=== PATIENT | female | born 1985 | race Caucasian/White ===

== ENCOUNTER 2020-01-17 12:53 | Emergency (ER) | payer OTHER, SELFPAY ==
--- NOTE | ~2020-01-17 | XR_ITS ---
XR lumbar spine 2-3V DATE: 01/17/2020 13:52 INDICATION: Patient fell on posterior left hip. Lower left back pain TECHNIQUE: AP, lateral, coned lateral lumbosacral views COMPARISON: None FINDINGS: There is normal alignment of the lumbar spine. No fracture or bone destruction. No spondylo listhesis. The lumbar and included lower thoracic pedicles are intact. Lumbar and lumbosacral intersp aces are well preserved. The sacroiliac joints are intact. IMPRESSION: No significant abnormality Reviewed, dictated and finalized at location A. IMPRESSION: No significant abnormality
[2020-01-17 13:02] VITALS: BP 160/85; PULSE 108; RESP 20; TEMP 37.1; O2SAT 100
--- NOTE | 2020-01-17 13:33 | ED.GENADULT ---
HPI - General Adult General Chief complaint: Back Pain/Injury Stated complaint: left lower back hip pain Time Seen by Provider: 01/17/20 13:33 Source: patient and RN notes reviewed Mode of arrival: ambulatory Limitations: no limitations History of Present Illness HPI narrative: 34-year-old female presents with complaints of left lower back pain that radiates into left posterior leg for 1 day. Tylenol and Aleve this morning at 07:00 with little to no relief. Maile says she fell last night at a local [employer]. Denies numbness or tingling. No upper or lower extremity pain or weakness. Exacerbating factors consist of prolong standing and bending. Denies problems with urinating or having a bowel movement, LBM this am per patient and normal. No flank pain or hematuria or dysuria. The patient reports she have not been diagnosed with COVID-19. The patient reports she is not waiting for the results of a COVID-19 lab test. The patient reports she do not have fever, chills, weakness, or fatigue. The patient reports she do not have a new or worsening cough or shortness of breath. Denies chest pain. The patient reports she do not have any rhinorrhea, congestion, sore throat, nausea, vomiting, abdominal pain, and diarrhea. Tolerating po intake well. Denies recent traveling. Denies concerns for COVID-19 or exposures been home since [id number] order except for essential household needs, working, and return home. At this time, patient is not suspected of having COVID-19. Some parts of this dictation were generated by voice recognition software and may contain typographical and/or grammatical inaccuracies. Related Data Home Medications Medication Instructions Recorded Confirmed escitalopram oxalate 20 mg tablet 20 mg PO DAILY 08/27/19 01/17/20 atomoxetine 80 mg capsule 80 mg PO DAILY 08/28/19 01/17/20 lamotrigine 100 mg tablet 100 mg PO DAILY 08/28/19 01/17/20 Allergies Allergy/AdvReac Type Severity Reaction Status Date / Time No Known Allergies Allergy Verified 01/17/20 13:13 Review of Systems Review of Systems: Narrative: CONSTITUTIONAL: Denies fever, chills, sweats. EYES: Denies visual changes, redness, discharge. ENT: Denies rhinorrhea, congestion, sore throat, otalgia. CARDIOVASCULAR: Denies chest pain, palpitations, edema. RESPIRATORY: Denies dyspnea, wheezing, cough. GASTROINTESTINAL: Denies abdominal pain, nausea, vomiting, diarrhea. GENITOURINARY: Denies dysuria, hematuria, abnormal discharge. SKIN: Denies rash or itching. MUSCULOSKELETAL: Complains of left lower back pain that radiates into left posterior leg. Denies joint pain or myalgia. NEUROLOGIC: Denies numbness or focal weakness. PSYCHIATRIC: Denies anxiety or depression. All systems reviewed & are unremarkable except as noted in HPI and below. [facility] Past Medical History Medical History (Updated 01/18/20 @ 00:00 by Huma Cooper) Anxiety delivery delivered X2 Surgical History Surgical History H/O section Family History Family History Father Family history of thyroid disease Hypertension Mother Family history of malignant neoplasm of breast in first degree relative Grandparent Diabetes mellitus Social History Social History (Updated 01/17/20 @ 13:42 by JOSE ANGEL Plasencia) Smoking packs per day: 1 Smoking cigarettes per day: 20.0 Years smoked: 20 Smoking pack-years: 20.00 Smoking status: Current some day smoker Second hand tobacco smoke exposure: Yes Alcohol intake: current Drinks per week: 1 Substance use: never Living arrangements: with family Occupation/Education: occupation Gender identity (if verbalized by the patient): Female Comments At time of signature, agree with nurse past medical, surgical, social, and family history. There is no relevant family histo
== END 2020-01-17 14:23 | disposition home or self-care (01) ==
PROVIDERS: Emergency Provider Nurse Practitioner Family; PCP Family Medicine
DX: S39.012A Strain of muscle, fascia and tendon of lower back, initial encounter (principal); M54.32 Sciatica, left side; F17.210 Nicotine dependence, cigarettes, uncomplicated; X58.XXXA Exposure to other specified factors, initial encounter
CPT/HCPCS: 72100; 99213; G0463

== ENCOUNTER 2020-11-16 08:21 | Outpatient (CLI) | payer OTHER, SELFPAY ==
--- NOTE | ~2020-11-16 | XR_ITS ---
EXAMINATION: XR knee RT 2V DATE: 11/16/2020 08:54 INDICATION: Right knee pain. TECHNIQUE: 2 views of right knee were obtained. COMPARISON: None. FINDINGS: Bone alignment is normal. No fracture. Joint spaces are well maintained. There is no knee j oint effusion. IMPRESSION: 1. Normal right knee. Reviewed, dictated and finalized at location A. IMPRESSION: 1. Normal right knee.
--- NOTE | ~2020-11-16 | XR_ITS ---
EXAMINATION: XR knee LT 2V DATE: 11/16/2020 08:54 INDICATION: Left knee pain. TECHNIQUE: 2 views of left knee were obtained. COMPARISON: None. FINDINGS: Bone alignment is normal. No fracture. Joint spaces are well maintained. There is no knee j oint effusion. IMPRESSION: 1. Normal left knee. Reviewed, dictated and finalized at location A. IMPRESSION: 1. Normal left knee.
[2020-11-16 19:48] LABS: Basophils Absolute Auto 0.1 K/mm3 (0.0-0.1); Basophils Percent Auto 0.9 % (0.2-1.2); Eosinophils Absolute Auto 0.3 K/mm3 (0-0.3); Eosinophils Percent Auto 4.7 % (0-4.4); Hemoglobin 14.1 g/dL (12.0-15.0); Immature Granulocyte Absolute 0.01 K/mm3 (0.00-0.031); Immature Granulocyte Percent A 0.2 % (0-0.5); Lymphocytes Absolute Auto 1.69 K/mm3 (0.9-3.2); Lymphocytes Percent Auto 30.6 % (18.3-44.2); Mean Corpuscular HGB Conc 33.6 g/dl (32-36); Mean Corpuscular Hemoglobin 32.5 pg (26-34); Mean Corpuscular Volume 96.8 fl (80-100); Monocytes Absolute Auto 0.5 K/mm3 (0.1-0.6); Monocytes Percent Auto 8.1 % (2.6-8.5); Neutrophils Absolute Auto 3.1 K/mm3 (1.3-6.7); Neutrophils Percent Auto 55.5 % (45.5-73.1); Platelet Count Result 361 k/mm3 (150-375); Red Blood Count 4.34 M/mm3 (4.2-5.4); Red Cell Distribution Width 12.5 % (11.5-14.5); White Blood Count 5.5 K/mm3 (4.5-10.0)
[2020-11-16 19:51] LABS: Add Urine Microscopic? YES; Appearance Urine Cloudy (Clear); Bilirubin Urine Negative (Negative); Blood Urine Negative (Negative); Color Urine Yellow (Yellow); Glucose Urine UA Negative (Negative); Ketones Urine Negative (Negative); Leukocyte Esterase Ur Negative LEU/UL (Negative); Nitrate Urine Negative (Negative); Protein Urine Negative (Negative); RBC Urine 0-2 /hpf (0-2); Specific Grav Ur 1.018 (1.001-1.035); Squamous Epithelial Cell Urine Many /hpf (Few); Urobilinogen Urine Negative mg/dL (<2.0); WBC Urine 0-3 /hpf
[2020-11-16 19:58] LABS: Alanine Aminotransferase 21 U/L (4-35); Albumin Level 4.5 g/dL (3.5-5.1); Alkaline Phosphatase 114 U/L (38-126); Anion Gap 5 mmol/L (8-16); Aspartate Amino Transferase 20 U/L (14-36); Bilirubin,Total 0.2 mg/dL (0.2-1.3); Blood Urea Nitrogen 16 mg/dL (7-17); CRP < 0.5 mg/dL (<1.0); Calcium 9.5 mg/dL (8.4-10.2); Carbon Dioxide 29 mmol/L (22-30); Chloride 104 mmol/L (98-107); Cholesterol 167 mg/dL (0-200); Estimated Glomerular Filt Rate > 60; Glucose 99 mg/dL (65-105); HDL Direct 69 mg/dL; Potassium 4.5 mmol/L (3.4-5.0); Rheumatoid Factor < 8.6 IU/ML (<12); Sodium 138 mmol/L (137-145); Triglycerides 94 mg/dL (<150)
[2020-11-16 20:07] LABS: LDL Cholesterol Direct 82 mg/dL
[2020-11-16 20:13] LABS: Free T4 Free Thyroxine 0.65 ng/mL (0.78-2.19); Vitamin D 25 Hydroxy 36.4 ng/mL
[2020-11-16 20:26] LABS: Thyroid Stimulating Hormone 0.816 uIU/mL (0.465-4.680)
[2020-11-16 21:09] LABS: Folic Acid 11.2 ng/mL (2.76->20)
[2020-11-20 05:20] LABS: CA-125 22 U/mL (<35); Sex Hormone Binding Globulin 78 nmol/L (17-124)
[2020-11-21 09:22] LABS: Progesterone 8.7 ng/mL (***); Triiodothyronine T3 Free 2.7 pg/mL (2.3-4.2)
[2020-11-21 10:14] LABS: Testosterone Total 38 ng/dL (2-45)
[2020-11-23 11:37] LABS: T3 Reverse 10 ng/dL (8-25)
[2020-11-24 16:27] LABS: Estradiol, Ultrasensitive 174 pg/mL
== END 2020-11-16 08:22 | disposition home or self-care (01) ==
PROVIDERS: PCP Family Medicine; Visit Provider Family Medicine
DX: F98.8 Other specified behavioral and emotional disorders with onset usually occurring in childhood and adolescence (principal); M54.5 Low back pain; M62.838 Other muscle spasm; N94.3 Premenstrual tension syndrome; Z79.899 Other long term (current) drug therapy; G25.81 Restless legs syndrome; M25.561 Pain in right knee; M25.562 Pain in left knee; F32.81 Premenstrual dysphoric disorder; N99.89 Other postprocedural complications and disorders of genitourinary system; Z98.51 Tubal ligation status
CPT/HCPCS: 36415; 73560; 80053; 80061; 81001; 82306; 82607; 82670; 82746; 83001; 83735; 84144; 84270; 84402; 84403; 84439; 84443; 84481; 84482; 85025; 86038; 86140; 86304; 86430

== ENCOUNTER 2021-01-26 12:14 | Outpatient (CLI) | payer OTHER, SELFPAY ==
[2021-01-26 18:44] LABS: Free T4 Free Thyroxine 0.89 ng/mL (0.78-2.19)
== END 2021-01-26 12:15 | disposition home or self-care (01) ==
LOC: ANHBWCLAB 12:16
PROVIDERS: PCP Family Medicine; Visit Provider Family Medicine
DX: E03.9 Hypothyroidism, unspecified (principal)
CPT/HCPCS: 36415; 84439; 84443

== ENCOUNTER 2021-03-23 13:52 | Outpatient (CLI) | payer OTHER, SELFPAY | END 2021-03-23 13:53 | disposition home or self-care (01) | LOC: ANHBWCLAB 13:55 | PROVIDERS: PCP Family Medicine; Visit Provider Family Medicine | DX: E03.9 Hypothyroidism, unspecified (principal) | CPT/HCPCS: 36415; 84443 ==

== ENCOUNTER 2021-06-07 11:17 | Outpatient (CLI) | payer OTHER, SELFPAY | END 2021-06-07 11:18 | disposition home or self-care (01) | PROVIDERS: PCP Family Medicine; Visit Provider Family Medicine | DX: E03.9 Hypothyroidism, unspecified (principal) | CPT/HCPCS: 36415; 84443 ==

== ENCOUNTER 2022-11-30 13:43 | Outpatient (CLI) | payer OTHER, SELFPAY ==
[2022-11-30 19:24] LABS: Basophils Absolute Auto 0.1 K/mm3 (0.0-0.1); Basophils Percent Auto 0.9 % (0.2-1.2); Eosinophils Absolute Auto 0.3 K/mm3 (0-0.3); Eosinophils Percent Auto 4.6 % (0-4.4); Hematocrit 43.3 % (37.0-47.0); Hemoglobin 14.4 g/dL (12.0-15.0); Immature Granulocyte Absolute 0.01 K/mm3 (0.00-0.031); Immature Granulocyte Percent A 0.1 % (0-0.5); Lymphocytes Absolute Auto 2.35 K/mm3 (0.9-3.2); Lymphocytes Percent Auto 33.6 % (18.3-44.2); Mean Corpuscular HGB Conc 33.3 g/dl (32-36); Mean Corpuscular Hemoglobin 31.8 pg (26-34); Mean Corpuscular Volume 95.6 fl (80-100); Mean Platelet Volume 9.6 fl (7.4-10.4); Monocytes Absolute Auto 0.5 K/mm3 (0.1-0.6); Monocytes Percent Auto 6.7 % (2.6-8.5); Neutrophils Absolute Auto 3.8 K/mm3 (1.3-6.7); Neutrophils Percent Auto 54.1 % (45.5-73.1); Platelet Count Result 371 k/mm3 (150-375); Red Blood Count 4.53 M/mm3 (4.2-5.4); Red Cell Distribution Width 12.8 % (11.5-14.5)
[2022-11-30 19:33] LABS: Alanine Aminotransferase 37 U/L (6-35); Albumin Level 4.9 g/dL (3.5-5.1); Alkaline Phosphatase 117 U/L (38-126); Anion Gap 7 mmol/L (8-16); Aspartate Amino Transferase 78 U/L (14-36); Bilirubin,Total 0.6 mg/dL (0.2-1.3); Blood Urea Nitrogen 9 mg/dL (7-17); Calcium 9.1 mg/dL (8.4-10.2); Carbon Dioxide 31 mmol/L (22-30); Chloride 102 mmol/L (98-107); Cholesterol 203 mg/dL (0-200); Estimated Glomerular Filt Rate > 60; Glucose 92 mg/dL (65-110); HDL Direct 63 mg/dL; Potassium 3.8 mmol/L (3.4-5.0); Sodium 140 mmol/L (137-145); Triglycerides 169 mg/dL (<150)
[2022-11-30 19:44] LABS: LDL Cholesterol Direct 94 mg/dL
== END 2022-11-30 13:44 | disposition home or self-care (01) ==
LOC: ANHBWCLAB 13:45
PROVIDERS: PCP Family Medicine; Visit Provider Nurse Practitioner Family
DX: Z00.00 Encounter for general adult medical examination without abnormal findings (principal)
CPT/HCPCS: 36415; 80053; 80061; 84443; 85025

== ENCOUNTER 2023-04-24 13:50 | Outpatient (CLI) | payer OTHER, SELFPAY ==
--- NOTE | ~2023-04-24 | XR_ITS ---
EXAM: XR lumbar spine 2-3V, XR sacrum coccyx min 2V DATE: 04/24/2023 14:07 HISTORY: MID LOW BACK/ PELVIC PAIN X 2 MONTHS . COMPARISON: 01/17/2020. FINDINGS: 5 nonrib-bearing lumbar-type vertebral bodies. Pedicles intact. Normal vertebral body alig nment. Vertebral body heights preserved. Mild disc space narrowing and marginal osteophytosis at L3-4 and L4-5. Normal facets and posterior elements. No fracture or dislocation. Mild degenerative change at the pubic symphysis. Normal SI joints and bilateral hips IMPRESSION: Mild degenerative disc disease at L3-4 and L4-5. Mild osteitis pubis. Reviewed, dictated and finalized at location K. IMPRESSION: Mild degenerative disc disease at L3-4 and L4-5. Mild osteitis pubis.
== END 2023-04-24 13:51 | disposition home or self-care (01) ==
PROVIDERS: PCP Family Medicine; Visit Provider Nurse Practitioner Adult Health
DX: M54.50 Low back pain, unspecified (principal); M51.36 Other intervertebral disc degeneration, lumbar region; M86.8X8 Other osteomyelitis, other site
CPT/HCPCS: 72100; 72220

== ENCOUNTER 2024-06-19 14:51 | Emergency (ER) | payer OTHER, SELFPAY ==
[2024-06-19 14:56] VITALS: BP 130/90; PULSE 102; RESP 20; TEMP 37.1; O2SAT 98
--- NOTE | 2024-06-19 15:20 | ED.URI ---
HPI - URI/Sore Throat General Chief Complaint: Upper Respiratory Infection Stated Complaint: Sore Throat History of Present Illness HPI Narrative: 38-year-old female presented for complaint of sore throat bilateral ear pain for 3 days. Denies associated nasal congestion, cough, nausea vomiting diarrhea, fevers or chills. Taking ibuprofen and Tylenol. smokes 1 ppd. Related Data Allergies Allergy/AdvReac Type Severity Reaction Status Date / Time No Known Allergies Allergy Verified 06/11/24 10:36 Review of Systems Review of Systems: CONSTITUTIONAL: Denies body aches, fever, chills, or sweats. EYES: Denies visual changes, redness, or discharge. ENT: Denies rhinorrhea, congestion, reports sore throat, otalgia. CARDIOVASCULAR: Denies chest pain, palpitations, or edema. RESPIRATORY: Denies dyspnea. GASTROINTESTINAL: Denies abdominal pain, nausea, vomiting, or diarrhea. SKIN: Denies rash MUSCULOSKELETAL: Denies back pain, joint pain, or myalgia. NEUROLOGIC: Denies headache PMFSH Past Medical History Medical History Anxiety delivery delivered X2 Surgical History Surgical History H/O section Family History Family History Father Family history of thyroid disease Hypertension Graves disease Mother Family history of malignant neoplasm of breast in first degree relative History of cholecystectomy Grandparent Diabetes mellitus Sibling Graves disease Social History Social History Smoking packs per day: 1 Smoking cigarettes per day: 20.0 Years smoked: 20 Smoking pack-years: 20.00 Smoking status: Current every day smoker Second hand tobacco smoke exposure: Yes Alcohol intake: current Drinks per week: 1 Substance use: never Lack of Transportation: No Lack of Food: Never True Current Housing: I Have Housing Concerned About Future Housing: No Difficulty Paying Gas/Electric Bills: No Difficulty Paying for Meds: No Currently Unemployed: No Education: Bachelor's Degree Difficulty w/ Childcare or Family Care: No Living arrangements: with family Occupation/Education: occupation Gender identity (if verbalized by the patient): Female Exam Narrative: GENERAL: well-appearing, no acute distress. EYES: conjunctivae clear ENT: Mucous membranes moist. TM pearly maldonado with normal light reflex bilaterally; no tragal tenderness. Oropharynx erythematous without lesions. Tonsils enlarged 1+ and without exudate. No drooling, no hoarseness, no trismus, uvula midline. No tripod positioning, hot potato voice, or soft palate swelling. NECK: Supple. No lymphadenopathy CHEST: Clear to auscultation, breath sounds equal. No respiratory distress, speaks in full sentences. HEART: Regular rate and rhythm. No murmur heard. SKIN: Warm, dry, no rash. NEURO: Alert and oriented x3. Course Course Emergency Course: Patient is aware of diagnosis, understands and agrees to treatment plan. Anticipatory guidance given. Patient agrees to follow-up as directed and is aware of reasons to seek care at the emergency department. Portions of this record may have been created with voice recognition software Level of Care: Express Care Visit Vital Signs Vital signs: Vital Signs Temperature 98.8 F 06/19/24 14:56 Pulse Rate 102 H 06/19/24 14:56 Respiratory Rate 20 06/19/24 14:56 Blood Pressure 130/90 06/19/24 14:56 Pulse Oximetry 98 06/19/24 14:56 Oxygen Delivery Room Air 06/19/24 14:56 Temperature 98.8 F 06/19/24 14:56 Pulse Rate 102 H 06/19/24 14:56 Respiratory Rate 20 06/19/24 14:56 Blood Pressure 130/90 06/19/24 14:56 Pulse Oximetry 98 06/19/24 14:56 Oxygen Delivery Room Air 06/19/24 14:56 MDM - URI/Sore Throat MDM Narrative Medical decision making narrative: neg strep result reviewed with pt. Pt asked for pain medication stating tylenol and ibuprofen are not helping, offered a steroid pt declined, pt requested 'vicodin.' Advise supportive treatments. Patient is appropriate for outpatient treatment and follow-up. Differential Diagnosis Differential diagnosis: Likely upper respiratory infection, sinusitis, viral infection, influenza and pharyngitis Lab Data Labs: Lab Results 06/19/24 Range/Units 15:24 POC Grp A Strep Screen Negative (Negative) Discharge Plan Discharge Clinical Impression: Pharyngitis Patient Disposition: Home, Self-Care Condition: Stable Instructions: Antibiotic Form, Pharyngitis (ED) Additional Instructions: Rapid strep swab was negative today You will be notified in a few days if the culture comes back positive for strep, and appropriate antibiotics will be called in at that time. if symptoms are due to a viral illness, it is not treated with antibiotics. Viral symptoms can be present for up to 10-14 days. Recommendations: Tylenol and ibuprofen every 8 hours as needed for pain/fever Soft foods, cool liquids, warm tea. Gargle with warm saltwater twice a day. Chloraseptic spray and throat lozenges. Rest and stay hydrated. --Follow up with your PCP --Go to the ER immediately if you cannot swallow your saliva, trouble breathing/wheezing, throat swelling, pain is persistent and severe Prescriptions: No Action methylphenidate HCl 5 mg tablet 5 mg PO DAILY Qty: 30 0RF Follow-up/Referrals: UNKNOWN,DOCTOR [Primary Care Provider] - Time of Disposition: 15:43
[2024-06-19 15:44] LABS: EDSTREPNEGPOS1 Negative (Negative)
== END 2024-06-19 15:47 | disposition home or self-care (01) ==
PROVIDERS: Emergency Provider Nurse Practitioner Family
DX: J02.9 Acute pharyngitis, unspecified (principal); F17.210 Nicotine dependence, cigarettes, uncomplicated
CPT/HCPCS: 87081; 87880; 99213; G0463

== ENCOUNTER 2025-04-21 10:00 | Outpatient (CLI) | payer OTHER, SELFPAY ==
--- OUTSIDE RECORDS SUMMARY | 2025-04-21 11:22 | XMS_ITS | Clinical Summary ---
Author Organization [facility] [place] [facility] Address [address] [place] [address] Care Team Providers Care Laboratory Associate Name Role Phone Michael Pizarro DO Primary Care Provider [phone] Allergies No known active allergies Medications sulfamethoxazole -trimethoprim (BACTRIM DS) 800-160 mg per tablet take 1 tablet by oral route every 12 hours 10 0 12/23/2015 Active buPROPion XL (WELLBUTRIN XL) 300 mg 24 hr tablet take 1 tablet by oral route every day 0 0 12/23/2015 Active venlafaxine XR (EFFEXOR-XR) 150 mg 24 hr capsule 06/07/2017 Ac tive Active Problems No known active problems Immunizations Immunization Administration Dates Next Due Influenza, Quadrivalent, Spl it, Preservative Free, Intramuscular 07/02/2015 Surgical History Surgery Date Site/Laterality Comments SECTION C/S Family History Medical History Relation Name Comments Other Brother x3 Alive and well; Hypertension Father Hypertension; Breast cancer Mother Cancer, breast ; Relation Name Status Comments Brother x3 Alive Father Mother Social History Tobacco Use Types Packs/Day Years Used Date Smoking Tobacco: Heavy Smoker Smokeless Tobacco: Never Comments:Smoking History Pac ks/day: 1 Packs Alcohol Use Standard Drinks/Week Comments Yes 0 (1 standard drink = 0.6 oz pur e alcohol) Personal Safety Answer Date Recorded Getting School Help Needed Not on file 10/25 Comments Unknown Sex and Gender Information Value Date Recorded Sex Assigned at Not on file Legal Sex Female 9:50 AM HOSPITAL SCIENTIST Gender Identity Not on file Sexual Orientation Not on file 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 on file Not on file Not on f ile Obstetrics History Last Filed Vital Signs Vital Sign Reading Time Taken Comments Blood Pressure 110/66 06/26/2017 2:49 PM HOSPITAL SCIENTIST Pulse 76 12/23/2015 9:26 AM CDT Temperature - - Respiratory Rate - - Oxygen Saturation 99% 12/23/2015 9:26 AM CDT Inhaled Oxygen Concentration - - Weight 73 kg (161 lb) 06/26/2017 2:49 PM HOSPITAL SCIENTIST Height 165.1 cm (5' 5) 06/26/2017 2:49 PM HOSPITAL SCIENTIST Body Mass Index 26.79 06/26/2017 2:49 PM HOSPITAL SCIENTIST Plan of Treatment Not on file Insurance [id number] [place] [address] Care Teams Laboratory Associate Relationship Specialty Start Date End Date Michael Pizarro DO PCP - General 12/08/20
--- OUTSIDE RECORDS SUMMARY | 2025-04-21 11:22 | XMS_ITS | Clinical Summary ---
Author Organization [facility] Address [address] [place] [id number] Phone Care Team Providers Care Taker Off Drying Kiln Name Role Phone Michael Carmen MD Primary Care Provider Allergies No known active allergies Medications PNV with Ca No.65-Iron Poly-FA 60 mg (Iron)-1 mg Oral Cap Take by mouth. Active oxyCODONE-acetam inophen (PERCOCET) 5-325 mg Oral tablet Take 1 Tab by mouth every 4 hours as needed (For Pain Scale 4-6). 40 Tab 0 02/17/2010 Active Active Problems Problem Noted Date Diagnosed Date C Section 7/6 02/15/2010 MIL: cytotec i @2300; GBS neg 02/14/2010 Immunizations Immunization Administration Dates Next Due Influenza A (H1N1) Vaccine IM 06/17/2009 Family History Medical History Relation Name Comments Cancer Paternal Grandfather Relation Name Status Comments Paternal Grandfather Social History Tobacco Use Types Packs/Day Years Used Date Smoking Tobacco: Every Day Cigarettes 0.3 10 Alcohol Use Standard Drinks/Week Comments No 0 (1 standard drink = 0.6 oz pur e alcohol) Comments Unknown Sex and Gender Information Value Date Recorded Sex Assigned at Not on file Legal Sex Female 5:54 AM CLINICAL APPLICATION SPECIALIST Gender Identity Not on file Sexual Orientation Not on file Last Filed Vital Signs Vital Sign Reading Time Taken Comments Blood Pressure 124/80 02/17/2010 1:15 PM CDT Pulse 76 02/17/2010 1:15 PM CDT Temperature 37 C (98.6 F) 02/17/2010 1:15 PM CDT Respiratory Rate 16 02/17/2010 1:15 PM CDT Oxygen Saturation 96% 02/15/2010 3:29 AM CDT Inhaled Oxygen Concentration - - Weight 86.2 kg (190 lb) 02/14/2010 9:06 PM CDT Height 160 cm (5' 3) 02/14/2010 9:06 PM CDT Body Mass Index 33.66 02/14/2010 9:06 PM CDT Plan of Treatment Health Maintenance Due Date Last Done Comments DTAP/TDAP/TD VACCINES (1 - Tdap) 2004 HEPATITIS B VACCINES (1 of 3 - 19+ 3-dose series) 06/14 HPV/Cotest (21-29) 2006 HPV VACCINES (1 - 3-dose SCDM series) 2012 CERVICAL CANCER SCREENING 2015 HPV/Cotest (30-65) 2015 PAP SMEAR 2015 INFLUENZA VACCINE (#1) 2025 Insurance [employer] PPO Advance Directives For more information, please contact: [phone] * Full Code (Latest Code Status on File) Date Activated Date Inactivated Comments 02/15/2010 4:19 AM 02/17/2010 7:07 PM * Full Code Date Activated Date Inactivated Comments 02/14/2010 9:40 PM 02/15/2010 4:19 AM * Full Code Date Activated Date Inactivated Comments 02/14/2010 9:40 PM 02/14/2010 9:40 PM Care Teams Taker Off Drying Kiln Relationship Specialty Start Date End Date Michael Carmen MD PCP - General Internal Medicine 02/02/10
--- OUTSIDE RECORDS SUMMARY | 2025-04-21 11:22 | XMS_ITS | Clinical Summary ---
Author Organization [facility] Address [address] [place] [address] Care Team Providers Care Sap Solution Manager Consultant Name Role Phone Unavailable Primary Care Provider Unavailabl e Source Comments [facility],non-owned Affiliates and Associated Physician Practices is amultiple site organization consisting of ambulatory clinics and hospital sitesin [place], [place], [place] and [place]. This disclosure is being madepursuant to the Care Everywhere program and may not contain all information available regarding this patient. Last updated 18.[facility] Social History Tobacco Use Types Packs/Day Years Used Date Smoking Tobacco: Never Assessed Comments Unknown Sex and Gender Information Value Date Recorded Sex Assigned at Not on file Legal Sex Female 7:01 AM CDT Gender Identity Not on file Sexual Orientation Not on file Plan of Treatment Health Maintenance Due Date Last Done Comments HIV SCREENING 2000 HEPATITIS C SCREENING 07/03/2003 DTAP/TDAP/TD VACCINES (1 - Tdap) 2004 HEPATITIS B VACCINE (1 of 3 - 19+ 3-dose series) 2004 PAP SMEAR 2006 HPV VACCINE (1 - 3-dose SCDM series) 2012 COVID-19 VACCINE (1 - 2023-2 5 season) 2024 DEPRESSION SCREENING 08/13/2024 INFLUENZA VACCINE (#1) 2025 ZOSTER VACCINE (1 of 2) 2035 HIB VACCINE Aged Out No longer eligi ble based on patient's age to complete this topic MENINGOCOCCAL (Group B) VACC INE SHARED DECISION-MAKING Aged Out No longer eligibl e based on patient's age to complete this topic MENINGOCOCCAL GROUPS A/C/Y/W VACCINE Aged Out No longer eligible b ased on patient's age to complete this topic PNEUMOCOCCAL VACCINE Aged Out No long er eligible based on patient's age to complete this topic Insurance [employer]
--- OUTSIDE RECORDS SUMMARY | 2025-04-21 11:22 | XMS_ITS | Patient Health Record ---
Author Organization [facility] Address [address] [place] [address] Care Team Providers Care Independent Agent Music Education Name Role Phone Maria A Holloway Primary Care Provider Reason For Referral No Information Social History PRAPARE Question Answer Notes Date Completed/Updated: 03/15/2018 Are you worried about losing your housing? No What is the highest level of school that you have finished? 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 Check all that apply I do not have problems meeting my needs Has lack of transportation k ept you from medical appointments, meetings, work or from getting things needed for daily living? No How often do you see or talk to people that you care about and feel close to? (For example: talking to friends on the phone, visiting friends or family, going to restoration or club meetings) 3 to 5 times a week How stressed are you? Stress is when someone feels tense, nervous, anxious, or can\t sleep at night because their mind is troubled Quite a bit In the past year have you sp ent more than 2 nights in a row in a longterm, half-way, fdc center, or juvenile correctional facility? No Are you a refugee? No What country are you from? [place] Do you feel physically and e motionally safe where you currently live? Yes In the past year, have you b een afraid of your partner or ex-partner? No PRAPARE Score: 2 Problems Problem Type SNOMED Code ICD Code Onset Dates Problem Status W/U Status Risk Notes Problem Opioid dependence (05490767) Opioid use disorder, severe (F11.20) Active confirmed Problem Alcohol dependence (54818207) Alcohol use disorder, severe, dependence (F10.20) Active confirmed Plan Of Treatment No Information Insurance Providers Payer Name Payer Address Payer Phone Subscriber Number Group Number Insured Name Patient Relationship to Insured Coverage Start Date Coverage End Date JONH [address] [place], [place] [id number] Maile Rashid Self - patient is the insured 2015
--- OUTSIDE RECORDS SUMMARY | 2025-04-21 11:22 | XMS_ITS | Encounter Summary ---
Author Organization [facility] Address [address] [place] [address] Care Team Providers Care Nickel Operator Name Role Phone Unavailable Primary Care Provider Unavailabl e Encounter Details Date Type Department Care Team (Late st Contact Info) Description 01/05/[address] [facility] - DermPath Lab [address] [place] [id number] Slade Parrish Jr., MD [address] [place] [address] Social History Tobacco Use Types Packs/Day Years Used Date Smoking Tobacco: Never Assessed Comments Unknown Sex and Gender Information Value Date Recorded Sex Assigned at Not on file Legal Sex Female 7:01 AM CDT Gender Identity Not on file Sexual Orientation Not on file documented as of this encounter Plan of Treatment Not on file documented as of this encounter Procedures Procedure Name Priority Date/Time Associated Diagnosis Comments DERMATOPATHOLOGY Routine 01/03/2023 3:33 AM CDT documented in this encounter Results * DERMATOPATHOLOGY (01/03/2023 3:33 AM CDT) Case Report Dermatopathology Report Case: [id number] Authorizing Provider: Slade Parrish Jr., MD Collected: 01/03/2023 03:33 AM Ordering Location: [facility] DermPath Lab Received: 01/05/2023 07:08 AM Pathologist: Brittaney Dewey MD Specimens: A) - Skin, glabella B) - Skin, left superior central buccal cheek C) - Skin, right anterior shoulder D) - Skin, right posterior axilla E) - Skin, left inferior upper back 3:57 PM CDT DERMATOPATHOLOGY LABORATORY Final Diagnosis Specimen A. 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 SKIN, right anterior shoulder: COMPOUND MELANOCYTIC NEVUS (D22.61) Specimen D. SKIN, right posterior axilla: COMPOUND MELANOCYTIC NEVUS (D22.5) Specimen E. SKIN, left inferior upper back: COMPOUND NEVUS WITH CONGENITAL FEATURES (D22.5) 3:57 PM T DERMATOPATHOLOGY LABORATORY at 1557 CDT Clinical History A-E: Irritated Nevus 3:57 PM T DERMATOPATHOLOGY LABORATORY Gross Description Specimen A: Received is one formalin filled container labeled with the patient's name and designated glabella. The specimen consists of a punch biopsy measuring 6x6x5 mm. Jar 0. Specimen B: Received is one formalin filled container labeled with the patient's name and designated left superior central buccal cheek. The specimen consists of a punch biopsy measuring 6x6x6 mm. Jar 0. Specimen C: Received is one formalin filled container labeled with the patient's name and designated right anterior shoulder. The specimen consists of a shave biopsy measuring 3x2x3 mm. Jar 0. Specimen D: Received is one formalin filled container labeled with the patient's name and designated right posterior axilla. The specimen consists of a shave biopsy measuring 7x4x2 mm. Jar 0. Specimen E: Received is one formalin filled container labeled with the patient's name and designated left inferior upper back. The specimen consists of a shave biopsy measuring 7x6x4 mm. Jar 0. 3:57 PM T DERMATOPATHOLOGY LABORATORY Microscopic Description Specimen A. SKIN, glabella: There are nests of melanocytes at the dermal-epidermal junction and within the dermis. Specimen B. SKIN, left superior central buccal cheek: There are nests of melanocytes at the dermal-epidermal junction and within the dermis. Metaplastic bone is seen within the dermis. Specimen C. SKIN, right anterior shoulder: There are nests of melanocytes at the dermal-epidermal junction and within the dermis. Specimen D. SKIN, right posterior axilla: There are nests of melanocytes at the dermal-epidermal junction and within the dermis. Specimen E. SKIN, left inferior upper back: There are nests of melanocytes at the dermal-epidermal junction and within the dermis. Some melanocytes are splayed between collagen bundles and are localized around adnexal structures. 3 3:57 PM CDT DERMATOPATHOLOGY LABORATORY Disclaimer An external and internal positive and negative controls are appropriate for the histochemical, immunohistochemical and immunofluorescence stain(s) in this case (if any), except where stated explicitly. The performance characteristics of the stain(s) cited in this report were developed and its performance characteristic determined by the Dermatopathology Laboratory at [facility], directed by Dr. Rafael Garner. These tests need not be, and therefore are not, approved by the [place] Food and Drug Administration. The tests are used for clinical purposes. Billing Codes Specimen Charges Stain Charges 67515 [id number] [id number] 1 1 1 1 1 3 3:57 PM CDT DERMATOPATHOLOGY LABORATORY Embedded Images 3 3:57 PM CDT DERMATOPATHOLOGY LABORATORY Pathology/Cytology TISSUE SPECIMEN FROM SKIN / Unknown 01/03/2023 3:33 AM CDT 01/05/2023 7:08 AM CDT Miscellaneous samples (specimen) TISSUE SPECIMEN FROM SKIN / Unknown 01/03/2023 3:33 AM CDT 01/05/2023 7:08 AM CDT Miscellaneous samples (specimen) TISSUE SPECIMEN FROM SKIN / Unknown 01/03/2023 3:33 AM CDT 01/05/2023 7:08 AM CDT Miscellaneous samples (specimen) TISSUE SPECIMEN FROM SKIN / Unknown 01/03/2023 3:33 AM CDT 01/05/2023 7:08 AM CDT Miscellaneous samples (specimen) TISSUE SPECIMEN FROM SKIN / Unknown 01/03/2023 3:33 AM CDT 01/05/2023 7:08 AM CDT Slade Parrish Jr., MD LAB - PATHOLOGY/CYTOLOG Y ORDERABLES Final Result DERMATOPATHOLOGY LABORATORY [facility] - Department of Dermatology [address] [place] [address], [facility] [phone] documented in this encounter Visit Diagnoses Not on filedocumented in this encounter
[2025-04-21 18:30] LABS: Hematocrit 38.8 % (37.0-47.0); Hemoglobin 12.9 g/dL (12.0-15.0); Mean Corpuscular HGB Conc 33.2 g/dl (32-36); Mean Corpuscular Hemoglobin 31.9 pg (26-34); Mean Corpuscular Volume 96.0 fl (80-100); Platelet Count Result 338 k/mm3 (150-375); Red Blood Count 4.04 M/mm3 (4.2-5.4); White Blood Count 4.9 K/mm3 (4.5-10.0)
[2025-04-21 18:48] LABS: Alanine Aminotransferase 18 U/L (6-35); Albumin Level 4.6 g/dL (3.5-5.1); Alkaline Phosphatase 102 U/L (38-126); Anion Gap 6 mmol/L (4-12); Aspartate Amino Transferase 44 U/L (14-36); Bilirubin,Total 0.7 mg/dL (0.2-1.3); Blood Urea Nitrogen 11 mg/dL (7-17); Calcium 9.3 mg/dL (8.4-10.2); Carbon Dioxide 25 mmol/L (22-30); Chloride 104 mmol/L (98-107); Cholesterol 166 mg/dL (0-200); Estimated Glomerular Filt Rate > 60; Glucose 91 mg/dL (65-110); HDL Direct 60 mg/dL; Potassium 4.7 mmol/L (3.4-5.0); Sodium 135 mmol/L (137-145); Total Protein 7.2 g/dL (6.3-8.2); Triglycerides 67 mg/dL (<150)
[2025-04-21 19:22] LABS: Thyroid Stimulating Hormone 2.080 uIU/mL (0.465-4.680)
== END 2025-04-21 10:01 | disposition home or self-care (01) ==
LOC: ANHBWCLAB 10:01
PROVIDERS: PCP Nurse Practitioner Adult Health; Visit Provider Nurse Practitioner Adult Health
DX: Z13.9 Encounter for screening, unspecified (principal)
CPT/HCPCS: 36415; 80053; 80061; 84443; 85027